=== PATIENT | male | born 1980 | race Two or more races ===

== ENCOUNTER 2025-06-09 03:18 | Emergency (ER) | payer SELFPAY ==
[~2025-06-09] VITALS: Ht 190.5 cm; Wt 100.0 kg
[2025-06-09 04:28] LABS: PLATELET COUNT, AUTOMATED 231 10^3/uL (150-450)
[2025-06-09 04:53] LABS: ALT/SGPT 17 U/L (7.0-40); AST/SGOT 21 U/L (<34); CALCIUM LEVEL 8.6 MG/DL (8.5-10.1); CARBON DIOXIDE LEVEL 26 MMOL/L (20-31); CHLORIDE LEVEL 110 MMOL/L (98-107); CREATININE FOR GFR 1.26 MG/DL (0.70-1.30); GLOMERULAR FILTRATION RATE 71.7 (>60); POTASSIUM SERUM 3.9 MMOL/L (3.5-5.1); SALICYLATE LEVEL < 3.0 MG/DL (<30); SODIUM LEVEL 145 MMOL/L (136-145)
[2025-06-09 05:03] LABS: ETHYL ALCOHOL (ETHANOL) 0.149 % (0.000-0.010)
[2025-06-09 12:22] VITALS: BP 153/98; TEMP 97.8; O2SAT 97
== END 2025-06-09 12:31 | disposition home or self-care (01) ==
LOC: M ED 03:18
DX: F10.129 Alcohol abuse with intoxication, unspecified (principal)